=== PATIENT | female | born 1985 | race Hispanic/Latino ===

== ENCOUNTER 2022-06-22 09:48 | Emergency (ER) | payer OTHER ==
[~2022-06-22] VITALS: Ht 170.2 cm; Wt 81.6 kg
== END 2022-06-22 10:16 | disposition home or self-care (01) ==
LOC: ER 09:59
DX: Z48.01 Encounter for change or removal of surgical wound dressing (principal)
CPT/HCPCS: 99282

== ENCOUNTER 2024-03-27 17:00 | Emergency (ER) | payer OTHER ==
[~2024-03-27] VITALS: Ht 170.2 cm; Wt 104.3 kg
[2024-03-27 17:23] VITALS: PULSE 74; RESP 19; TEMP 98.8
[2024-03-27 17:54] LABS: CORONAVIRUS COVID-19 AG NEGATIVE (NEGATIVE); INFLUENZA A AG NEGATIVE (NEGATIVE); INFLUENZA B AG NEGATIVE (NEGATIVE)
[2024-03-27] MEDS ORDERED: METHYLPREDNISOLONE SOD SUCC 125 MG/2ML VIAL ONE (19:39)
[2024-03-27] MEDS: METHYLPREDNISOLONE SOD SUCC 125 MG/2ML VIAL IM ONE (19:45)
[2024-03-27] MEDS ORDERED: MEDROL4 M2 PO (20:48)
[2024-03-27] MEDS ORDERED: AZITHROMYCIN250 MG PO (20:48)
[2024-03-27 20:51] VITALS: BP 129/92; PULSE 72; RESP 19; TEMP 97.8; O2SAT 98
== END 2024-03-27 20:53 | disposition home or self-care (01) ==
LOC: ER 19:38
DX: R05.9 Cough, unspecified (principal); J40 Bronchitis, not specified as acute or chronic; I10 Essential (primary) hypertension; D64.9 Anemia, unspecified; F41.9 Anxiety disorder, unspecified; F31.81 Bipolar II disorder; Z11.52 Encounter for screening for COVID-19; Z98.84 Bariatric surgery status
CPT/HCPCS: 71046; 87428; 99283; J2919

== ENCOUNTER 2024-10-01 21:10 | Emergency (ER) | payer BC, OTHER ==
[~2024-10-01] VITALS: Ht 170.2 cm; Wt 96.6 kg
[~2024-10-01 21:10] MED LIST: AZITHROMYCIN250 MG PO; MEDROL4 M2 PO
[2024-10-01 21:25] VITALS: TEMP 99.2
[2024-10-01] MEDS ORDERED: MAGNESIUM/ALUMINUM/SIMETHICONE 30 ML UDC PO STA (21:28)
[2024-10-01] MEDS ORDERED: LIDOCAINE VISC 2% SOLN 15 ML UDC PO STA (21:28)
[2024-10-01] MEDS ORDERED: BELLADONNA ALK/PHENOBARBITAL 5 ML UDC PO ONE (21:30)
[2024-10-01] MEDS: ONDANSETRON HCL INJ 2MG/ML 2ML 2 MG/ML VIAL IV STA (22:11)
[2024-10-01] MEDS: SODIUM CHLORIDE 0.9% 1000ML 1,000 ML IV STA (22:12)
[2024-10-01 22:20] LABS: EST GLOMERULAR FILTRATION RATE 113.0 ML/MIN (>=60)
[2024-10-01 22:36] LABS: BASOPHILS % 0.4 % (0.0-1.0); EOSINOPHILS % 0.2 % (0.0-6.0); LYMPHOCYTES % 34.7 % (18.0-39.1); MONOCYTES % 4.8 % (4.4-11.3); NEUTROPHILS % 59.5 % (38.7-80.0); RED CELL DISTRIBUTION WIDTH 14.0 % (11.7-14.4)
[2024-10-01] MEDS ORDERED: IOPAMIDOL 370 MG/ML 100 ML INFUS..BTL INJ ONE (22:48)
[2024-10-01 23:04] LABS: LEUKOCYTE ESTERASE ,URINE NEGATIVE (NEGATIVE); PREGNANCY TEST, URINE NEGATIVE (NEGATIVE); PROTEIN,URINE DIPSTICK NEGATIVE (NEGATIVE); URINE UROBILINOGEN 0.2 mg/dL (0.2 - 1)
[2024-10-01 23:14] LABS: EPITHELIAL CELLS,URINE MODERATE /LPF; WBC,URINE (MAN) 0-5 /HPF (0-5)
[2024-10-01] MEDS: Morphine 4mg INJECTION 4 MG/ML INJ IV STA (23:24)
[2024-10-02] MEDS ORDERED: PROTONIX20 MG PO (00:17)
[2024-10-02] MEDS ORDERED: ONDANSETRON ODT4 MG PO (00:17)
[2024-10-02 00:45] VITALS: PULSE 56; RESP 18
[2024-10-02 01:55] VITALS: BP 130/83; PULSE 61; RESP 20; O2SAT 100
== END 2024-10-02 01:57 | disposition home or self-care (01) ==
LOC: ER 21:24
DX: R10.10 Upper abdominal pain, unspecified (principal); R11.2 Nausea with vomiting, unspecified; I10 Essential (primary) hypertension; D64.9 Anemia, unspecified; J45.909 Unspecified asthma, uncomplicated; R16.0 Hepatomegaly, not elsewhere classified; F41.9 Anxiety disorder, unspecified; F32.A Depression, unspecified; Z98.84 Bariatric surgery status
CPT/HCPCS: 36415; 74177; 80053; 81001; 81025; 83690; 85025; 99284; J2270; J2405; J7030; Q9967